=== PATIENT | female | born 1955 | race Hispanic/Latino ===

== ENCOUNTER 2016-12-09 13:35 | Inpatient (IN) | payer MEDICARE, OTHER ==
[2016-12-09 13:36] VITALS: BMI 25.8
[2016-12-09] MEDS ORDERED: Albuterol-Ipratrop 3 mg / 0.5 (3 ml) UD IH STA ×2 (14:24→15:38)
[2016-12-09 14:35] LABS: BASO % 0.3 % (0.0-2.0); HEMATOCRIT 38.8 % (34.0-47.0); LYMPH # 1.7 K/uL (1.0-4.3); LYMPH % 11.6 % (20.0-40.0); MEAN CELL VOLUME 94.3 fL (81.0-99.0); MEAN CORPUSCULAR HEMOGLOBIN 31.8 pg (27.0-31.0); MEAN CORPUSCULAR HGB CONC 33.8 g/dL (33.0-37.0); MEAN PLATELET VOLUME 9.3 fL (7.2-11.7); MONO # 1.8 K/uL (0.0-0.8); MONO % 12.6 % (0.0-10.0); NRBC % 0.1 % (0.0-2.0); RED CELL DISTRIBUTION WIDTH 11.8 % (11.5-14.5); WHITE BLOOD COUNT 14.3 K/uL (4.8-10.8)
[2016-12-09] MEDS ORDERED: Albuterol-Ipratrop 3 mg / 0.5 (3 ml) UD ONE ×2 (14:37→15:50)
[2016-12-09 14:52] LABS: CHLORIDE 95 mmol/L (98-107)
[2016-12-09 14:54] LABS: POTASSIUM 3.8 mmol/L (3.6-5.2); SODIUM 138 mmol/L (132-148)
[2016-12-09 14:56] LABS: ALKALINE PHOSPHATASE 73 U/L (38-126); ALT/SGPT 19 U/L (9-52); AST/SGOT 33 U/L (14-36); BILIRUBIN,TOTAL 0.8 mg/dL (0.2-1.3); BLOOD UREA NITROGEN 33 mg/dL (7-17); CARBON DIOXIDE 35 mmol/L (22-30); GFR AFRICAN-AMERICAN > 60; TOTAL PROTEIN 7.9 g/dL (6.3-8.3)
[2016-12-09 14:57] LABS: ALCOHOL SERUM < 10 mg/dl (0-10); CALCIUM 8.9 mg/dl (8.6-10.4); GLUCOSE,RANDOM 116 mg/dL (65-105); MAGNESIUM 2.6 mg/dL (1.6-2.3)
[2016-12-09] MEDS ORDERED: MethylPREDNISolone 40 mg Vial IVP STA (15:37)
--- NOTE | 2016-12-09 15:39 | RAD ---
PROCEDURE: CHEST RADIOGRAPH, 1 VIEW HISTORY: SOB COMPARISON: Comparison chest 02/24/2014. Comparison also made with CT scan chest 06/03/2014 FINDINGS: LUNGS: Lung toro are clear however note made of lucent appearance of the right upper lobe more so than left secondary central lobular emphysematous changes which are seen to better advantage on prior CT scan chest abdomen pelvis. Mild bibasilar atelectasis. PLEURA: No pneumothorax or pleural fluid seen. CARDIOVASCULAR: Normal. OSSEOUS STRUCTURES: No significant abnormalities. VISUALIZED UPPER ABDOMEN: Normal. OTHER FINDINGS: None. IMPRESSION: Emphysematous changes. Mild bibasilar atelectasis. Alcantar alcantar No focal consolidation.
--- NOTE | 2016-12-09 16:24 | CT ---
PROCEDURE: CT HEAD WITHOUT CONTRAST. HISTORY: AMS COMPARISON: 06/03/2014 TECHNIQUE: Axial computed tomography images were obtained through the head/brain without intravenous contrast. Radiation dose: Total exam DLP = 840.74 mGy-cm. This CT exam was performed using one or more of the following dose reduction techniques: Automated exposure control, adjustment of the mA and/or kV according to patient size, and/or use of iterative reconstruction technique. FINDINGS: HEMORRHAGE: No intracranial hemorrhage. BRAIN: No mass effect or edema. No atrophy or chronic microvascular ischemic changes. VENTRICLES: Unremarkable. No hydrocephalus. CALVARIUM: Unremarkable. PARANASAL SINUSES: Chronic sphenoid sinusitis. Old depressed left lamina papyracea fracture, unchanged. MASTOID AIR CELLS: Unremarkable as visualized. No inflammatory changes. OTHER FINDINGS: None. IMPRESSION: No intracranial mass, hemorrhage or evidence of acute infarct. Chronic sphenoid sinusitis.
[2016-12-09 17:01] LABS: ABG ALLEN TEST PO; DRAW SITE RR
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
--- NOTE | 2016-12-09 19:35 | C.PDOC ---
Time Seen by Provider: 12/09/16 14:03 Chief Complaint (Nursing): Altered Mental Status History Per: Patient, EMS History/Exam Limitations: Clinical Condition Onset/Duration Of Symptoms: Days (?) Onset Of Symptoms: Cannot Confirm Onset Current Symptoms Are (Timing): Still Present Usual Baseline: Unknown Exacerbating Factor(s): Unknown Use Of Anticoag/Antiplatelets: Unknown Severity: Moderate Additional History Per: Prior Records Associated Symptoms: Disoriented, Confused, Not Eating, Not Drinking, Dyspnea Past Medical History Reviewed: Historical Data, Nursing Documentation, Vital Signs Vital Signs: Last Vital Signs Temp 98.5 F 12/09/16 19:02 Pulse 85 12/09/16 19:02 Resp 19 12/09/16 19:02 BP 103/63 12/09/16 19:02 Pulse Ox 90 L 12/09/16 19:02 - Medical History PMH: Anxiety, Arthritis, Depression, Emphysema, Chronic Kidney Disease, Seizures (if misses suboxone doses) - [facility] Procedures APPLICATION OF SPLINT (02/24/14) INJECT/INFUSE NEC (03/02/14) Family History: States: Unknown Family Hx - Social History Hx Tobacco Use: Yes Hx Alcohol Use: No Hx Substance Use: Yes (patient with history of narcotic dependency) - Immunization History Hx Tetanus Toxoid Vaccination: No Hx Influenza Vaccination: No Hx Pneumococcal Vaccination: No Review Of Systems Constitutional: Negative for: Fever Cardiovascular: Negative for: Chest Pain Respiratory: Positive for: Shortness of Breath, Wheezing Gastrointestinal: Positive for: Vomiting. Negative for: Abdominal Pain Musculoskeletal: Negative for: Neck Pain Skin: Negative for: Rash Neurological: Positive for: Headache. Negative for: Weakness, Numbness Physical Exam - Physical Exam Appears: Confused, Chronically Ill Skin: Normal Color, Warm, Dry Head: Atraumatic, Normacephalic Eye(s): bilateral: PERRL, EOMI Oral Mucosa: Dry Neck: Normal ROM, No Midline Cervical Tenderness, No Step Off Deformity, Supple Cardiovascular: Rhythm Regular Respiratory: Wheezing Gastrointestinal/Abdominal: Soft Extremity: Normal ROM, No Pedal Edema, No Calf Tenderness, No Deformity Neurological/Psych: Normal Motor, Normal Sensation, Slow To Respond With Command Disoriented To: Time Gait: Unable To Assess ED Course And Treatment - Laboratory Results Result Diagrams: 12/09/16 14:29 12/09/16 14:29 Lab Interpretation: Abnormal Interpretation Of Abnormal: Elevated BUN and BNP. Positive troponin level. ECG: Interpreted By Me, Viewed By Me ECG Rhythm: Sinus Rhythm, Nonspecific Changes Rate From EC O2 Sat by Pulse Oximetry: 90 Pulse Ox Interpretation: Abnormal Interpretation Of Abnormal: Hypoxia on RA - Radiology CXR: Viewed By Me, Read By Radiologist CXR Interpretation: Yes: COPD - CT Scan/US CT head Other Rad Studies (CT/US): Read By Radiologist, Radiology Report Reviewed CT/US Interpretation: IMPRESSION: No intracranial mass, hemorrhage or evidence of acute infarct. Chronic sphenoid sinusitis. - Physician Consult Information Physician Contacted: Cindy Alonso (ICU) Outcome Of Conversation: He evaluated pt in the ED and states pt can be safely admitted to telemetry floor. Progress - Interventions Interventions:: Observation, Oxygen - Medications Administered Oral: Aspirin Inhaled nebulized: Anticholinergic, Beta-2 agonist Intravenous: Corticosteroid - Data Reviewed Data Reviewed: Lab, Diagnostic imaging, EKG, Old records - Patient Status Patient status: Partially improved - Critical Care Citical Care: Excluding Proc Time Critical Care Time: 45 minutes - Continuity of Care Discussed patient case with:: Patient, ED Nurse, Covering for PMD - Patient Plan Patient Plan: Admission, Telemetry Disposition Discussed With Dr.: Gurwinder Morgan (Covering) Comment: He accepted pt on his service and gave admitting orders to the nurse. Doctor Will See Patient In The: Hospital Counseled Patient/Family Regarding: Studies Performed, Diagnosis, Smoking Cessation - Disposition Disposition: HOSPITALIZED Disposition Time: 19:41 Condition: GUARDED - Clinical Impression Clinical Impression: COPD exacerbation, Altered mental status, Elevated troponin
[2016-12-09] MEDS ORDERED: Pneumococcal 23-Valent Vaccine IM ONE (19:51)
[2016-12-09] MEDS ORDERED: Sodium Chloride 0.45% 1,000 ML IV ONE (20:04)
[2016-12-09] MEDS: Sodium Chloride 0.45% 1,000 ML IV SCH (20:16)
[2016-12-09] MEDS: Albuterol-Ipratrop 3 mg / 0.5 (3 ml) UD INH SCH (20:31)
[2016-12-09 21:59] LABS: RBC URINE 4 /hpf (0-3); URINE BACTERIA RARE (<OCC); URINE BILIRUBIN NEGATIVE (NEGATIVE); URINE BLOOD 1+ (NEGATIVE); URINE COLOR Yellow (YELLOW); URINE GLUCOSE (UA) NORMAL (Normal); URINE KETONE TRACE mg/dL (NEGATIVE); URINE LEUKOCYTE ESTERASE NEG Leu/uL (Negative); URINE PROTEIN 1+ mg/dL (NEGATIVE); URINE UROBILINOGEN NORMAL mg/dL (0.2-1.0); WBC URINE 5 /hpf (0-5)
[2016-12-10] MEDS: Albuterol-Ipratrop 3 mg / 0.5 (3 ml) UD INH SCH ×5 (01:34→20:18)
[2016-12-10 06:31] LABS: BASO % 0.2 % (0.0-2.0); HEMATOCRIT 36.8 % (34.0-47.0); LYMPH # 0.8 K/uL (1.0-4.3); LYMPH % 7.8 % (20.0-40.0); MEAN CELL VOLUME 94.4 fL (81.0-99.0); MEAN CORPUSCULAR HGB CONC 33.9 g/dL (33.0-37.0); MEAN PLATELET VOLUME 9.2 fL (7.2-11.7); MONO # 0.2 K/uL (0.0-0.8); MONO % 2.4 % (0.0-10.0); PLATELET COUNT 259 K/uL (130-400); RED CELL DISTRIBUTION WIDTH 11.8 % (11.5-14.5); WHITE BLOOD COUNT 10.3 K/uL (4.8-10.8)
[2016-12-10 06:45] LABS: CHLORIDE 94 mmol/L (98-107); POTASSIUM 3.7 mmol/L (3.6-5.2); SODIUM 135 mmol/L (132-148)
[2016-12-10 06:48] LABS: BLOOD UREA NITROGEN 29 mg/dL (7-17); CARBON DIOXIDE 31 mmol/L (22-30); GFR AFRICAN-AMERICAN > 60
[2016-12-10 06:49] LABS: CALCIUM 8.6 mg/dl (8.6-10.4); GLUCOSE,RANDOM 165 mg/dL (65-105)
[2016-12-10 08:22] LABS: NEUTROPHIL 77 % (50-75); TOTAL CELLS COUNTED 100
[2016-12-10 08:23] LABS: GIANT PLATELETS PRESENT; LARGE PLATELETS PRESENT
[2016-12-10] MEDS: Sodium Chloride 0.45% 1,000 ML IV SCH ×3 (09:36→23:25)
[2016-12-10] MEDS: Pantoprazole 40 mg EC Tab PO SCH (10:59)
[2016-12-10 14:22] LABS: ABG ALLEN TEST POS; ARTERIAL BLOOD HGB O2 SAT 84.9 % (95.0-98.0); DRAW SITE RR; HHB 11.8 % (0.0-5.0); METHEMOGLOBIN 1.3 % (0.0-3.0)
--- NOTE | 2016-12-10 17:02 | NM ---
COMPARISON: December 09, 2016. Single-view chest TECHNIQUE: 12.3 mCi technetium 99-m Xe-133 Gas. 3.4 mCI technetium 99-m MAA administered intravenously. FINDINGS: VENTILATION COMPONENT: No focal abnormalities. Retention of radionuclide on the washout phase suggests a component of air trapping/lower airway disease. PERFUSION COMPONENT: Heterogeneous distribution of radionuclide. No geographic, segmental, lobar abnormalities apparent on the present examination. This is particularly evident in the apices, upper lobes. These represent matched findings compared to the ventilation component. IMPRESSION: Low keyprobability ventilation perfusion scan for pulmonary embolism.
--- NOTE | 2016-12-10 17:54 | CP.PCM.HP ---
History of Present Illness - History of Present Illness History of Present Illness: admitted for ams and exacerbation of copd with severe hypoxemia Present on Admission - Present on Admission Any Indicators Present on Admission: Yes Review of Systems - Review of Systems Systems not reviewed;Unavailable: Altered Mental Status - Constitutional Constitutional: Malaise - Respiratory Respiratory: Dyspnea - Musculoskeletal Musculoskeletal: Muscle Weakness - Neurological Neurological: Weakness - Psychiatric Psychiatric: Anxiety, Panic Attacks Past Patient History - Infectious Disease Hx of Infectious Diseases: None - Tetanus Immunizations Tetanus Immunization: Unknown - Past Medical History & Family History Past Medical History?: Yes - Past Social History Smoking Status: Heavy Smoker > 10 Cigarettes Daily Chewing Tobacco Use: No Cigar Use: No Alcohol: None - CARDIAC Hx Cardiac Disorders: No - PULMONARY Hx Chronic Obstructive Pulmonary Disease (COPD): Yes Hx Emphysema: Yes - NEUROLOGICAL Hx Seizures: No (if misses suboxone doses) - HEENT Hx HEENT Problems: No - RENAL Hx Chronic Kidney Disease: Yes Other/Comment: Renal mass - ENDOCRINE/METABOLIC Hx Endocrine Disorders: No - HEMATOLOGICAL/ONCOLOGICAL Hx Blood Disorders: No - INTEGUMENTARY Hx Dermatological Problems: No - MUSCULOSKELETAL/RHEUMATOLOGICAL Hx Arthritis: Yes Hx Falls: Yes - GASTROINTESTINAL Hx Gastrointestinal Disorders: No - GENITOURINARY/GYNECOLOGICAL Hx Genitourinary Disorders: No - PSYCHIATRIC Hx Anxiety: Yes Hx Depression: Yes Hx Substance Use: Yes (patient with history of narcotic dependency) - SURGICAL HISTORY Hx Surgeries: Yes Hx Orthopedic Surgery: Yes (spinal fusion) Other/Comment: - ANESTHESIA Hx Anesthesia: Yes Hx Anesthesia Reactions: No Hx Malignant Hyperthermia: No Has any member of the family had a problem w/ anesthesia?: No Meds Allergies/Adverse Reactions: Allergies Allergy/AdvReac Type Severity Reaction Status Date / Time No Known Allergies Allergy Verified 12/09/16 13:45 Physical Exam - Constitutional Appears: No Acute Distress, Older Than Stated Age, Chronically Ill - Head Exam Head Exam: ATRAUMATIC, NORMOCEPHALIC - Eye Exam Eye Exam: Normal appearance - ENT Exam ENT Exam: Mucous Membranes Moist - Neck Exam Neck exam: Positive for: Normal Inspection - Respiratory Exam Respiratory Exam: Decreased Breath Sounds - Cardiovascular Exam Cardiovascular Exam: +S1, +S2 - GI/Abdominal Exam GI & Abdominal Exam: Normal Bowel Sounds - Rectal Exam Rectal Exam: Deferred - Neurological Exam Neurological exam: Alert, Oriented x3 - Psychiatric Exam Psychiatric exam: Anxious - Skin Skin Exam: Intact Results - Vital Signs Recent Vital Signs: Last Vital Signs Temp 98.3 F 12/10/16 16:50 Pulse 74 12/10/16 16:55 Resp 20 12/10/16 16:50 BP 95/55 L 12/10/16 16:50 Pulse Ox 94 L 12/10/16 16:50 - Labs Result Diagrams: 12/10/16 06:24 12/10/16 06:24 Labs: Laboratory Results - last 24 hr 12/09/16 12/09/16 12/10/16 21:40 21:40 06:24 WBC 10.3 RBC 3.90 Hgb 12.5 Hct 36.8 MCV 94.4 MCH 32.0 H MCHC 33.9 RDW 11.8 Plt Count 259 MPV 9.2 Neut % (Auto) 89.6 H Lymph % (Auto) 7.8 L [place] % (Auto) 2.4 Eos % (Auto) 0.0 Baso % (Auto) 0.2 Neut # 9.2 H Lymph # 0.8 L [place] # 0.2 Eos # 0.0 Baso # 0.0 Neutrophils % (Manual) 77 H Band Neutrophils % 10 H Lymphocytes % (Manual) 9 L Monocytes % (Manual) 4 Platelet Estimate Normal Large Platelets Present Giant Platelets Present RBC Morphology Normal APTT Puncture Site pCO2 pO2 HCO3 ABG pH ABG Total CO2 ABG O2 Saturation ABG Base Excess ABG Hemoglobin ABG Carboxyhemoglobin POC ABG HHb (Measured) ABG Methemoglobin Mike Test A-a O2 Difference Respiratory Index Hgb O2 Saturation Liter Flow FiO2 Sodium Potassium Chloride Carbon Dioxide Anion Gap BUN Creatinine Est GFR ( Amer) Est GFR (Non-Af Amer) Random Glucose Calcium Troponin I Urine Color Yellow Urine Clarity Clear Urine pH 6.0 Ur Specific [place] 1.024 Urine Protein 1+ H Urine Glucose (UA) Normal Urine Ketones Trace Urine Blood 1+ H Urine Nitrate Negative Urine Bilirubin Negative Urine Urobilinogen Normal Ur Leukocyte Esterase Neg Urine WBC (Auto) 5 Urine RBC (Auto) 4 H Ur Squamous Epith Cells < 1 Urine Bacteria Rare Hyaline Casts 6-10 H Urine Opiates Screen Negative Urine Methadone Screen Negative Ur Barbiturates Screen Negative Ur Phencyclidine Scrn Negative Ur Amphetamines Screen Negative U Benzodiazepines Scrn Positive U Oth Cocaine Metabols Negative U Cannabinoids Screen Negative 12/10/16 12/10/16 12/10/16 06:24 06:24 14:19 WBC RBC Hgb Hct MCV MCH MCHC RDW Plt Count MPV Neut % (Auto) Lymph % (Auto) [place] % (Auto) Eos % (Auto) Baso % (Auto) Neut # Lymph # [place] # Eos # Baso # Neutrophils % (Manual) Band Neutrophils % Lymphocytes % (Manual) Monocytes % (Manual) Platelet Estimate Large Platelets Giant Platelets RBC Morphology APTT 28 Puncture Site Rr pCO2 43 pO2 46 L HCO3 31.1 H ABG pH 7.49 H ABG Total CO2 34.1 H ABG O2 Saturation 87.8 L ABG Base Excess 8.4 H ABG Hemoglobin 14.9 ABG Carboxyhemoglobin 2.0 H POC ABG HHb (Measured) 11.8 H ABG Methemoglobin 1.3 Mike Test Pos A-a O2 Difference 114.0 Respiratory Index 2.5 Hgb O2 Saturation 84.9 L Liter Flow 3.0 FiO2 30.0 Sodium 135 Potassium 3.7 Chloride 94 L Carbon Dioxide 31 H Anion Gap 14 BUN 29 H Creatinine 0.6 L Est GFR ( Amer) > 60 Est GFR (Non-Af Amer) > 60 Random Glucose 165 H Calcium 8.6 Troponin I 0.2590 H* Urine Color Urine Clarity Urine pH Ur Specific [place] Urine Protein Urine Glucose (UA) Urine Ketones Urine Blood Urine Nitrate Urine Bilirubin Urine Urobilinogen Ur Leukocyte Esterase Urine WBC (Auto) Urine RBC (Auto) Ur Squamous Epith Cells Urine Bacteria Hyaline Casts Urine Opiates Screen Urine Methadone Screen Ur Barbiturates Screen Ur Phencyclidine Scrn Ur Amphetamines Screen U Benzodiazepines Scrn U Oth Cocaine Metabols U Cannabinoids Screen Assessment & Plan (1) COPD exacerbation Status: Acute (2) Elevated troponin Status: Acute (3) Altered mental status Status: Acute (4) Respiratory failure with hypoxia and hypercapnia Status: Acute
[2016-12-10] MEDS: MethylPREDNISolone 40 mg Vial IV SCH ×2 (18:10→23:51)
--- NOTE | 2016-12-10 18:32 | CARD ---
APPROVED REPORT EKG Measurement Heart [id number] <Conclusion> Normal sinus rhythm Right atrial enlargement T wave abnormality, consider inferior ischemia T wave abnormality, consider anterior ischemia Abnormal ECG
[2016-12-10] MEDS ORDERED: Albuterol-Ipratrop 3 mg / 0.5 (3 ml) UD INH SCH (20:00)
[2016-12-10] MEDS: Fluticasone-Salmeterol 500-50mcg Diskus INH SCH (20:18)
[2016-12-11] MEDS: Albuterol-Ipratrop 3 mg / 0.5 (3 ml) UD INH SCH ×4 (03:46→19:47)
[2016-12-11] MEDS: Sodium Chloride 0.45% 1,000 ML IV SCH ×3 (04:19→21:22)
[2016-12-11] MEDS: MethylPREDNISolone 40 mg Vial IV SCH ×3 (05:52→18:29)
[2016-12-11] MEDS: Fluticasone-Salmeterol 500-50mcg Diskus INH SCH ×2 (07:31→19:48)
[2016-12-11] MEDS: Tiotropium 18 mcg Cap For Inhalation INH SCH (07:32)
[2016-12-11 07:33] LABS: CHLORIDE 97 mmol/L (98-107); POTASSIUM 3.9 mmol/L (3.6-5.2); SODIUM 138 mmol/L (132-148)
[2016-12-11 07:34] LABS: HEMATOCRIT 37.1 % (34.0-47.0); MEAN CELL VOLUME 94.3 fL (81.0-99.0); MEAN CORPUSCULAR HEMOGLOBIN 31.4 pg (27.0-31.0); MEAN CORPUSCULAR HGB CONC 33.3 g/dL (33.0-37.0); MEAN PLATELET VOLUME 9.2 fL (7.2-11.7); MONO # 0.6 K/uL (0.0-0.8); MONO % 3.5 % (0.0-10.0); PLATELET COUNT 336 K/uL (130-400)
[2016-12-11 07:35] LABS: GFR AFRICAN-AMERICAN > 60
[2016-12-11 07:36] LABS: BLOOD UREA NITROGEN 20 mg/dL (7-17); CALCIUM 8.9 mg/dl (8.6-10.4); CARBON DIOXIDE 30 mmol/L (22-30); GLUCOSE,RANDOM 180 mg/dL (65-105)
[2016-12-11 07:41] LABS: WHITE BLOOD COUNT 16.6 K/uL (4.8-10.8)
[2016-12-11 08:41] LABS: MYELOCYTE 1 % (0-0); NEUTROPHIL 85 % (50-75); TOTAL CELLS COUNTED 100
[2016-12-11] MEDS: Pantoprazole 40 mg EC Tab PO SCH (09:55)
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
[2016-12-11 12:12] VITALS: RESP 20
--- NOTE | 2016-12-11 15:06 | CP.PCM.PN ---
Subjective - Date & Time of Evaluation Date of Evaluation: 12/11/16 Time of Evaluation: 15:00 - Subjective Subjective: feels better today, but still sob discussed with dr herrera Objective - Vital Signs/Intake and Output Vital Signs (last 24 hours): Temp Pulse Resp BP Pulse Ox 98.6 F 83 20 117/69 93 L 12/11/16 12:12 12/11/16 12:30 12/11/16 12:12 12/11/16 12:12 12/11/16 12:12 - Medications Medications: Current Medications Acetaminophen (Tylenol 325mg Tab) 650 mg PO Q6 PRN PRN Reason: Pain, moderate (4-7) Last Admin: 12/10/16 22:56 Dose: 650 mg Albuterol/Ipratropium (Duoneb 3 Mg/0.5 Mg (3 Ml) Ud) 3 ml INH RQ6 [facility] Last Admin: 12/11/16 13:29 Dose: 3 ml Alprazolam (Xanax) 0.5 mg PO TID PRN PRN Reason: Anxiety Last Admin: 12/11/16 14:09 Dose: 0.5 mg Heparin Sodium (Porcine) (Heparin) 5,000 units SC Q8 [facility] Last Admin: 12/11/16 05:51 Dose: Not Given Sodium Chloride (Sodium Chloride 0.45%) 1,000 mls @ 75 mls/hr IV .[id number] [facility] Last Admin: 12/11/16 14:54 Dose: Not Given Ceftriaxone Sodium 1 gm/ (Sodium Chloride) 100 mls @ 100 mls/hr IVPB DAILY [facility] Last Admin: 12/11/16 09:56 Dose: 100 mls/hr Methylprednisolone (Solu-Medrol) 40 mg IV Q6 [facility] Last Admin: 12/11/16 12:10 Dose: 40 mg Mirtazapine (Remeron) 15 mg PO HS [facility] Last Admin: 12/10/16 22:05 Dose: 15 mg Nicotine (Nicoderm Cq) 1 patch TD DAILY [facility] Last Admin: 12/11/16 09:56 Dose: 1 patch Pantoprazole Sodium (Protonix Ec Tab) 40 mg PO DAILY [facility] Last Admin: 12/11/16 09:55 Dose: 40 mg Pneumococcal Polyvalent Vaccine (Pneumovax 23 Vaccine) 0.5 ml IM .ONCE ONE Stop: 12/12/16 10:01 Fluticasone/Salmeterol (Advair Diskus 500/50) 1 puff INH RQ12 [facility] Last Admin: 12/11/16 07:31 Dose: 1 puff Tiotropium [place] (Spiriva) 18 mcg INH RQ24 [facility] Last Admin: 12/11/16 07:32 Dose: 18 mcg Tramadol HCl (Ultram) 50 mg PO Q6 PRN PRN Reason: Pain - Labs Labs: 12/11/16 07:17 12/11/16 07:17 APTT 28 SECONDS (21-34) 12/10/16 06:24 - Constitutional Appears: Chronically Ill - Head Exam Head Exam: ATRAUMATIC, NORMOCEPHALIC - Eye Exam Eye Exam: Normal appearance - ENT Exam ENT Exam: Mucous Membranes Moist - Respiratory Exam Respiratory Exam: Decreased Breath Sounds - Cardiovascular Exam Cardiovascular Exam: +S1, +S2 - GI/Abdominal Exam GI & Abdominal Exam: Normal Bowel Sounds - Rectal Exam Rectal Exam: Deferred - Neurological Exam Neurological Exam: Alert, Awake - Psychiatric Exam Psychiatric exam: Depressed, Normal Affect - Skin Skin Exam: Intact Assessment and Plan (1) COPD exacerbation Status: Acute (2) Elevated troponin Status: Acute (3) Altered mental status Status: Acute (4) Respiratory failure with hypoxia and hypercapnia Status: Acute
[2016-12-11 16:15] VITALS: BP 130/76; PULSE 73; TEMP 98.2; O2SAT 95
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
--- NOTE | 2016-12-11 23:30 | CARD ---
APPROVED REPORT EXAM: Two-dimensional and M-mode echocardiogram with Doppler and color Doppler. Other Information Quality : GoodRhythm : NSR INDICATION Dyspnea COPD RISK FACTORS Smoking M-Mode DIMENSIONS Left Atrium (MM)2.66 (2.5-4.0cm)Aortic Root2.89 (2.2-3.7cm) Aortic Cusp Exc.2.03 (1.5-2.0cm) Mitral Valve MV E Urpzjwzj20.6cm/sMV A Ujkklahu75.3cm/sE/A ratio1.0 TDI E/Lateral E'0.0E/Medial E'0.0 Tricuspid Valve TR Peak [id number]/sTR Peak [id number] LEFT VENTRICLE The left ventricle is normal size. There is normal left ventricular wall thickness. Left ventricle systolic function is normal. The Ejection Fraction is 65-70%. There is normal LV segmental wall motion. Transmitral Doppler flow pattern is Grade I-abnormal relaxation pattern. There is no ventricular septal defect visualized. RIGHT VENTRICLE The right ventricle is normal size. The right ventricular systolic function is normal. ATRIA The left atrium size is normal. The right atrium size is normal. AORTIC VALVE The aortic valve is mildly sclerotic. The aortic valve is tri-cuspid. No aortic regurgitation is present. There is no aortic valvular stenosis. MITRAL VALVE The mitral valve is normal in structure. There is no evidence of mitral valve prolapse. There is no mitral valve regurgitation noted. TRICUSPID VALVE The tricuspid valve is normal in structure. There is trace tricuspid regurgitation. Right ventricular systolic pressure is estimated at 30-40 mmHg. There is mild pulmonary hypertension. PULMONIC VALVE The pulmonic valve is not well visualized. There is no pulmonic valvular regurgitation. GREAT VESSELS The IVC is normal in size and collapses >50% with inspiration. PERICARDIAL EFFUSION There is no pericardial effusion. <Conclusion> Left ventricle systolic function is normal. The Ejection Fraction is 65-70%. Transmitral Doppler flow pattern is Grade I-abnormal relaxation pattern. There is mild pulmonary hypertension.
[2016-12-12 07:07] LABS: CHLORIDE 99 mmol/L (98-107); POTASSIUM 3.5 mmol/L (3.6-5.2)
[2016-12-12 07:08] LABS: CHOLESTEROL 153 mg/dL (0-199); GFR AFRICAN-AMERICAN > 60; SODIUM 138 mmol/L (132-148)
[2016-12-12 07:09] LABS: CARBON DIOXIDE 29 mmol/L (22-30)
[2016-12-12 07:10] LABS: BLOOD UREA NITROGEN 15 mg/dL (7-17); CALCIUM 8.6 mg/dl (8.6-10.4); GLUCOSE,RANDOM 194 mg/dL (65-105)
[2016-12-12 07:40] LABS: THYROID STIMULATING HORMONE 0.37 mIU/L (0.46-4.68)
[2016-12-12 07:47] LABS: BASO % 0.2 % (0.0-2.0); HEMATOCRIT 34.9 % (34.0-47.0); LYMPH # 0.8 K/uL (1.0-4.3); MEAN CELL VOLUME 94.7 fL (81.0-99.0); MEAN CORPUSCULAR HEMOGLOBIN 31.3 pg (27.0-31.0); MONO # 0.7 K/uL (0.0-0.8); MONO % 5.2 % (0.0-10.0); NRBC % 0.2 % (0.0-2.0); PLATELET COUNT 305 K/uL (130-400); RED CELL DISTRIBUTION WIDTH 12.2 % (11.5-14.5); WHITE BLOOD COUNT 13.7 K/uL (4.8-10.8)
[2016-12-12] MEDS: Fluticasone-Salmeterol 500-50mcg Diskus INH SCH (08:20)
[2016-12-12] MEDS: Albuterol-Ipratrop 3 mg / 0.5 (3 ml) UD INH SCH ×2 (08:20→14:00)
[2016-12-12] MEDS: Tiotropium 18 mcg Cap For Inhalation INH SCH (08:20)
[2016-12-12] MEDS ORDERED: Pneumococcal 23-Valent Vaccine IM ONE (10:00)
--- NOTE | 2016-12-12 15:06 | CARD ---
APPROVED REPORT EKG Measurement Heart [id number] <Conclusion> Sinus rhythm with premature atrial complexes T wave abnormality, consider inferior ischemia Prolonged QT Abnormal ECG
[2016-12-12] MEDS ORDERED: Potassium Chloride 20 mEq ER Tab PO ONE (15:27)
--- NOTE | 2016-12-12 17:18 | PN ---
DATE: 12/12/2016 SUBJECTIVE: The patient is seen. The patient is still feeling very weak and has breathing problems, but states she is feeling better. The patient wants to sign AMA today stating that she is afraid to undergo cardiac catheterization. She states that she is a little better with increased dose of Xanax. VITAL SIGNS: Temperature is 97.8, pulse rate is 62, respirations 20, blood pressure is 134/74. REVIEW OF SYSTEMS: GENERAL: The patient still feels weak but re oriented x 3. She was seen with her male friend. The patient states she wants to go home. SKIN: No diaphoresis. HEENT: No headache, no dizziness. NECK: Supple. RESPIRATORY: Mild to moderate dyspnea, not coughing. CARDIOVASCULAR: No chest pain. GASTROINTESTINAL: No nausea, no vomiting. EXTREMITIES: The patient has no tremors. MUSCULOSKELETAL: Feels weak. NEUROLOGIC: Alert, oriented x 3. GENITOURINARY: No dysuria. MENTAL STATUS EXAMINATION: Well-developed female, looks stated age, alert, oriented x 3. Still anxious, somatic, but doing better. Affect is reactive. Speech spontaneous. Thought process: Coherent. Thought content: Preoccupied about going home. She said she will follow up with PMD. She is afraid to go for cardiac catheterization to be done by Dr. Euceda. No paranoia. No suicidal or homicidal ideation, no hallucination. Attention and memory seem to be fair. Insight and judgment limited. Impulse control is fair at this time. IMPRESSION: History of recurrent depression, anxiety, nicotine dependence, nicotine withdrawal, history of delirium. PLAN AND RECOMMENDATIONS: The patient seen, meds reviewed. Continue Remeron 30 mg at bedtime. or she can resume her Doxepin at home. She can resume the doxepin she is taking at home as well as the Xanax 1 mg t.i.d. p.r.n. The patient can follow up with PMD. and she can follow up also in my office in 2 weeks if she is interested. The patient has been my patient for a while but has not been in my office in 8 months. Also advised to stop smoking. The patient was signing AMA today. Jigar Anthony MD cc: [phone] TT: 12/12/2016 17:17:40 Confirmation # [id number] Dictation # [id number] chuck GARDNER
[2016-12-13 08:53] LABS: NEUTROPHIL 85 % (50-75); TOTAL CELLS COUNTED 100
--- NOTE | 2016-12-29 20:40 | CP.PCM.DIS ---
Provider - Provider Date of Admission: 12/09/16 19:43 Attending physician: Gurwinder Morgan MD Time Spent in preparation of Discharge (in minutes): 25 Diagnosis - Discharge Diagnosis (1) COPD exacerbation Status: Acute (2) Elevated troponin Status: Acute (3) Altered mental status Status: Acute (4) Respiratory failure with hypoxia and hypercapnia Status: Acute Hospital Course - Lab Results Lab Results: Micro Results 12/09/16 Unknown Urine Urine Culture - Final No Growth (<1,000 CFU/ML) Most Recent Lab Values WBC 13.7 K/uL (4.8-10.8) H 12/12/16 04:00 RBC 3.69 Mil/uL (3.80-5.20) L 12/12/16 04:00 Hgb 11.5 g/dL (11.0-16.0) 12/12/16 04:00 Hct 34.9 % (34.0-47.0) 12/12/16 04:00 MCV 94.7 fL (81.0-99.0) 12/12/16 04:00 MCH 31.3 pg (27.0-31.0) H 12/12/16 04:00 MCHC 33.0 g/dL (33.0-37.0) 12/12/16 04:00 RDW 12.2 % (11.5-14.5) 12/12/16 04:00 Plt Count 305 K/uL (130-400) 12/12/16 04:00 MPV 9.0 fL (7.2-11.7) 12/12/16 04:00 Neut % (Auto) 88.6 % (50.0-75.0) H 12/12/16 04:00 Lymph % (Auto) 6.0 % (20.0-40.0) L 12/12/16 04:00 [place] % (Auto) 5.2 % (0.0-10.0) 12/12/16 04:00 Eos % (Auto) 0.0 % (0.0-4.0) 12/12/16 04:00 Baso % (Auto) 0.2 % (0.0-2.0) 12/12/16 04:00 Neut # 12.1 K/uL (1.8-7.0) H 12/12/16 04:00 Lymph # 0.8 K/uL (1.0-4.3) L 12/12/16 04:00 [place] # 0.7 K/uL (0.0-0.8) 12/12/16 04:00 Eos # 0.0 K/uL (0.0-0.7) 12/12/16 04:00 Baso # 0.0 K/uL (0.0-0.2) 12/12/16 04:00 Neutrophils % (Manual) 85 % (50-75) H 12/12/16 04:00 Band Neutrophils % 2 % (0-2) 12/12/16 04:00 Lymphocytes % (Manual) 6 % (20-40) L 12/12/16 04:00 Monocytes % (Manual) 7 % (0-10) 12/12/16 04:00 Myelocytes % 1 % (0-0) H 12/11/16 07:17 Toxic Granulation Present 12/11/16 07:17 Platelet Estimate Normal (NORMAL) 12/12/16 04:00 Large Platelets Present 12/10/16 06:24 Giant Platelets Present 12/10/16 06:24 RBC Morphology Normal 12/11/16 07:17 Hypochromasia (manual) Slight 12/12/16 04:00 Poikilocytosis (manual Slight 12/12/16 04:00 Anisocytosis (manual) Slight 12/12/16 04:00 APTT 28 SECONDS (21-34) 12/10/16 06:24 Puncture Site Rr 12/10/16 14:19 pCO2 43 mm/Hg (35-45) 12/10/16 14:19 pO2 46 mm/Hg (80-100) L 12/10/16 14:19 HCO3 31.1 mmol/L (21-28) H 12/10/16 14:19 ABG pH 7.49 (7.35-7.45) H 12/10/16 14:19 ABG Total CO2 34.1 mmol/L (22-28) H 12/10/16 14:19 ABG O2 Saturation 87.8 % (95-98) L 12/10/16 14:19 ABG Base Excess 8.4 mmol/L (-2.0-3.0) H 12/10/16 14:19 ABG Hemoglobin 14.9 g/dL (11.7-17.4) 12/10/16 14:19 ABG Carboxyhemoglobin 2.0 % (0.5-1.5) H 12/10/16 14:19 POC ABG HHb (Measured) 11.8 % (0.0-5.0) H 12/10/16 14:19 ABG Methemoglobin 1.3 % (0.0-3.0) 12/10/16 14:19 Mike Test Pos 12/10/16 14:19 ABG Potassium 3.6 mmol/L (3.6-5.2) 12/09/16 16:58 A-a O2 Difference 114.0 mm/Hg 12/10/16 14:19 Respiratory Index 2.5 12/10/16 14:19 Hgb O2 Saturation 84.9 % (95.0-98.0) L 12/10/16 14:19 Sodium 138.0 mmol/l (132-148) 12/09/16 16:58 Chloride 104.0 mmol/L (98-107) 12/09/16 16:58 Glucose 127 mg/dl (65-105) H 12/09/16 16:58 Lactate 1.1 mmol/L (0.7-2.1) 12/09/16 16:58 Liter Flow 3.0 12/10/16 14:19 FiO2 30.0 % 12/10/16 14:19 Sodium 138 mmol/L (132-148) 12/12/16 04:00 Potassium 3.5 mmol/L (3.6-5.2) L 12/12/16 04:00 Chloride 99 mmol/L (98-107) 12/12/16 04:00 Carbon Dioxide 29 mmol/L (22-30) 12/12/16 04:00 Anion Gap 14 (10-20) 12/12/16 04:00 BUN 15 mg/dL (7-17) 12/12/16 04:00 Creatinine 0.6 MG/DL (0.7-1.2) L 12/12/16 04:00 Est GFR ( Amer) > 60 12/12/16 04:00 Est GFR (Non-Af Amer) > 60 12/12/16 04:00 POC Glucose (mg/dL) 122 mg/dL (65-110) H 12/09/16 13:42 Random Glucose 194 mg/dL (65-105) H 12/12/16 04:00 Hemoglobin A1c 5.9 % (4.2-6.5) 12/12/16 04:00 Calcium 8.6 mg/dl (8.6-10.4) 12/12/16 04:00 Magnesium 2.6 mg/dL (1.6-2.3) H 12/09/16 14:29 Total Bilirubin 0.8 mg/dL (0.2-1.3) 12/09/16 14:29 AST 33 U/L (14-36) 12/09/16 14:29 ALT 19 U/L (9-52) 12/09/16 14:29 Alkaline Phosphatase 73 U/L (38-126) 12/09/16 14:29 Ammonia 29 umol/L (9-33) 12/09/16 14:30 Total Creatine Kinase 215 U/L (30-135) H 12/09/16 19:40 CK-MB (Mass) 3.11 ng/mL (0.0-3.38) 12/09/16 19:40 Troponin I 0.2590 ng/mL (0.00-0.120) H* 12/10/16 06:24 Troponin I, Quant 0.4990 ng/mL (0.00-0.120) H* 12/09/16 19:40 NT-Pro-B Natriuret Pep 1250 pg/mL (0-900) H 12/11/16 07:17 Total Protein 7.9 g/dL (6.3-8.3) 12/09/16 14:29 Albumin 3.9 g/dL (3.5-5.0) 12/09/16 14:29 Globulin 3.9 gm/dL (2.2-3.9) 12/09/16 14:29 Albumin/Globulin Ratio 1.0 (1.0-2.1) 12/09/16 14:29 Triglycerides 139 mg/dL (0-149) 12/12/16 04:00 Cholesterol 153 mg/dL (0-199) 12/12/16 04:00 LDL Cholesterol Direct 98 mg/dL (0-129) 12/12/16 04:00 HDL Cholesterol 26 mg/dL (30-70) L 12/12/16 04:00 TSH 3rd Generation 0.37 mIU/L (0.46-4.68) L 12/12/16 04:00 Arterial Blood Potassium 3.6 mmol/L (3.6-5.2) 12/09/16 16:58 Urine Color Yellow (YELLOW) 12/09/16 21:40 Urine Clarity Clear (Clear) 12/09/16 21:40 Urine pH 6.0 (5.0-8.0) 12/09/16 21:40 Ur Specific [place] 1.024 (1.003-1.030) 12/09/16 21:40 Urine Protein 1+ mg/dL (NEGATIVE) H 12/09/16 21:40 Urine Glucose (UA) Normal mg/dL (Normal) 12/09/16 21:40 Urine Ketones Trace mg/dL (NEGATIVE) 12/09/16 21:40 Urine Blood 1+ (NEGATIVE) H 12/09/16 21:40 Urine Nitrate Negative (NEGATIVE) 12/09/16 21:40 Urine Bilirubin Negative (NEGATIVE) 12/09/16 21:40 Urine Urobilinogen Normal mg/dL (0.2-1.0) 12/09/16 21:40 Ur Leukocyte Esterase Neg Frantz/uL (Negative) 12/09/16 21:40 Urine WBC (Auto) 5 /hpf (0-5) 12/09/16 21:40 Urine RBC (Auto) 4 /hpf (0-3) H 12/09/16 21:40 Ur Squamous Epith Cells < 1 /hpf (0-5) 12/09/16 21:40 Urine Bacteria Rare (<OCC) 12/09/16 21:40 Hyaline Casts 6-10 /lpf (0-2) H 12/09/16 21:40 Urine Opiates Screen Negative (NEGATIVE) 12/09/16 21:40 Urine Methadone Screen Negative (NEGATIVE) 12/09/16 21:40 Ur Barbiturates Screen Negative (NEGATIVE) 12/09/16 21:40 Ur Phencyclidine Scrn Negative (NEGATIVE) 12/09/16 21:40 Ur Amphetamines Screen Negative (NEGATIVE) 12/09/16 21:40 U Benzodiazepines Scrn Positive (NEGATIVE) 12/09/16 21:40 U Oth Cocaine Metabols Negative (NEGATIVE) 12/09/16 21:40 U Cannabinoids Screen Negative (NEGATIVE) 12/09/16 21:40 Alcohol, Quantitative < 10 mg/dl (0-10) 12/09/16 14:29 Discharge Exam - Head Exam Head Exam: ATRAUMATIC, NORMOCEPHALIC - Eye Exam Eye Exam: Normal appearance Pupil Exam: NORMAL ACCOMODATION - ENT Exam ENT Exam: Mucous Membranes Moist - Respiratory Exam Respiratory Exam: Decreased Breath Sounds - Cardiovascular Exam Cardiovascular Exam: +S1, +S2 - GI/Abdominal Exam GI & Abdominal Exam: Normal Bowel Sounds - Rectal Exam Rectal Exam: Deferred - Neurological Exam Neurological exam: Alert, Oriented x3 - Psychiatric Exam Psychiatric exam: Anxious, Depressed Discharge Plan - Follow Up Plan Condition: GUARDED Disposition: AGAINST MEDICAL ADVICE Instructions: Altered Mental Status (GEN)
== END 2016-12-12 17:15 | disposition left against medical advice (07) | DRG 190 ==
LOC: C.ER 13:35 → C.9E 19:43 → C.6T 20:30
PROVIDERS: ADMIT Internal Medicine Pulmonary Disease; ATTEND Internal Medicine Pulmonary Disease
DX: J44.1 Chronic obstructive pulmonary disease with (acute) exacerbation (principal); J96.92 Respiratory failure, unspecified with hypercapnia; J96.91 Respiratory failure, unspecified with hypoxia; F33.9 Major depressive disorder, recurrent, unspecified; F17.213 Nicotine dependence, cigarettes, with withdrawal; R41.82 Altered mental status, unspecified; N18.9 Chronic kidney disease, unspecified